=== PATIENT | female | born 1990 | race American Indian/Alaskan Native ===

== ENCOUNTER 2019-03-22 14:56 | Inpatient (IN) | payer SELFPAY ==
--- NOTE | 2019-03-22 15:41 | Event Note ---
ED Screening Note Date of service: 03/22/19 Time: 15:40 ED Screening Note: This is a 28 y.o. F. that presents to the ER with right flank pain for 2 days. Vomiting last night has resolved. LMP 02/21/2019 This initial assessment/diagnostic orders/clinical plan/treatment(s) is/are subject to change based on patients health status, clinical progression and re- assessment by fellow clinical providers in the ED. Further treatment and workup at subsequent clinical providers discretion. Patient/guardian urged not to elope from the ED as their condition may be serious if not clinically assessed and managed. Initial orders include: Labs and CT of abdomen and pelvis.
[2019-03-22 16:20] LABS: Basophils % (Auto) 0.3 % (0.0-1.8); Eosinophils # (Auto) 0.1 K/mm3 (0.0-0.4); Hematocrit 41.1 % (30.3-42.9); Lymphocytes # (Auto) 1.2 K/mm3 (1.2-5.4); Lymphocytes % (Auto) 10.9 % (13.4-35.0); Mean Corpuscular HGB Conc 34 % (30-34); Mean Corpuscular Volume 81 fl (79-97); Monocytes # (Auto) 0.6 K/mm3 (0.0-0.8); Monocytes % (Auto) 5.7 % (0.0-7.3); Platelet Count 271 K/mm3 (140-440); Red Blood Count 5.08 M/mm3 (3.65-5.03); Red Cell Distribution Width 14.3 % (13.2-15.2)
[2019-03-22 16:46] LABS: Alanine Aminotransferase 169 units/L (7-56); Albumin 4.4 g/dL (3.9-5); BUN/Creatinine Ratio 18; Blood Urea Nitrogen 9 mg/dL (7-17); Calcium 9.1 mg/dL (8.4-10.2); Hemolysis Index 8
[2019-03-22] MEDS ORDERED: MORPHINE 4 MG/1 ML INJ IV ONE (17:58)
[2019-03-22] MEDS ORDERED: SODIUM CHLORIDE 0.9% 1000 ML 1,000 ML IV ONE ×2 (17:58→21:33)
[2019-03-22] MEDS ORDERED: ONDANSETRON 4 MG/2 ML INJ IV ONE (17:58)
[2019-03-22 18:42] LABS: Bacteria,Urine 4+ /HPF (Negative); Bilirubin,Urine MOD (Negative); Blood,Urine SM (Negative); Color,Urine Amber (Yellow); Mucus,Urine 3+ /HPF
[2019-03-22 18:48] LABS: Ictotest,Urine Positive (Negative)
[2019-03-22] MEDS ORDERED: PIPERACIL/TAZOBACTA 4.5/NS 100 4.5 GM/100 ML VIAL IV ONE (20:12)
--- NOTE | 2019-03-22 20:15 | Emergency Department Report ---
ED Abdominal Pain HPI - General Chief Complaint: Abdominal Pain Stated Complaint: ABD PAIN Time Seen by Provider: 03/22/19 15:40 Source: patient Mode of arrival: Ambulatory Limitations: Language Barrier - History of Present Illness Initial Comments: This is a 28-year-old female nontoxic, well nourished in appearance, no acute signs of distress presents to the ED with c/o of nausea and vomiting and abdominal pain 2 days. Patient describes vomiting as food content and yellow gastric acid. Patient describes abdominal pain as cramping and aching with level of 10/10 to right upper side with radiation to right flank area. Patient denies chest pain, short of breath, fever, chills, headache, stiff neck, numbness or tingling. Patient denies any recent travels. Patient denies any allergies. Sirena translation has been present during interview and physical exam. MD Complaint: abdominal pain -: days(s) (2) Location: RUQ Radiation: R flank Migration to: no migration Severity: mild Severity scale (0 -10): 10 Quality: cramping, aching Consistency: constant Improves With: nothing Worsens With: nothing Associated Symptoms: nausea, vomiting. denies: diarrhea, fever, chills, constipation, dysuria, hematemesis, hematochezia, melena, hematuria, anorexia, syncope - Related Data Allergies Allergy/AdvReac Type Severity Reaction Status Date / Time No Known Allergies Allergy Unverified 03/22/19 14:59 ED Review of Systems ROS: Stated complaint: ABD PAIN Other details as noted in HPI Constitutional: denies: chills, fever Eyes: denies: eye pain, eye discharge, vision change ENT: denies: ear pain, throat pain Respiratory: denies: cough, shortness of breath, wheezing Cardiovascular: denies: chest pain, palpitations Endocrine: no symptoms reported Gastrointestinal: abdominal pain, nausea, vomiting. denies: diarrhea Genitourinary: denies: urgency, dysuria, discharge Musculoskeletal: denies: back pain, joint swelling, arthralgia Skin: denies: rash, lesions Neurological: denies: headache, weakness, paresthesias Psychiatric: denies: anxiety, depression Hematological/Lymphatic: denies: easy bleeding, easy bruising ED Past Medical Hx - Past Medical History Previous Medical History?: No - Surgical History Additional Surgical History: appendectomy - Social History Smoking Status: Never Smoker Substance Use Type: None ED Physical Exam - General Limitations: Language Barrier General appearance: alert, in no apparent distress - Head Head exam: Present: atraumatic, normocephalic - Eye Eye exam: Present: other (scleral slight jaundice noted) - Neck Neck exam: Present: normal inspection, full ROM. Absent: tenderness, meningismus, lymphadenopathy - Respiratory Respiratory exam: Present: normal lung sounds bilaterally. Absent: respiratory distress, wheezes, rales, rhonchi, stridor, chest wall tenderness, accessory muscle use, decreased breath sounds, prolonged expiratory - Cardiovascular Cardiovascular Exam: Present: regular rate, normal rhythm, normal heart sounds. Absent: systolic murmur, diastolic murmur, rubs, gallop - GI/Abdominal GI/Abdominal exam: Present: soft, tenderness (RUQ), normal bowel sounds. Absent: distended, guarding, rebound, rigid, diminished bowel sounds - Extremities Exam Extremities exam: Present: normal inspection, full ROM - Back Exam Back exam: Present: normal inspection, full ROM - Neurological Exam Neurological exam: Present: alert, oriented X3, normal gait - Psychiatric Psychiatric exam: Present: normal affect, normal mood - Skin Skin exam: Present: warm, dry, intact, normal color. Absent: rash ED Course Vital Signs 03/22/19 03/22/19 16:01 20:00 Temperature 97.6 F 97.8 F Pulse Rate 78 72 Respiratory 99 H 16 Rate Blood Pressure 128/82 115/77 O2 Sat by Pulse 99 98 Oximetry - Reevaluation(s) Reevaluation #1: 03/22/19 20:15 Patient is speaking in full sentences with no signs of distress noted. - Consultations Consultation #1: 03/22/19 21:18 Patient has been consulted with Jose Ritter about patient history, physical exam, and labs/CT results and examined and agrees to ED plan of care with admission. Consultation #2: 03/22/19 21:32 Patient has been consulted with Aleyda Blunt about patient history, physical exam, and labs/CT results and agrees for admission. ED Medical Decision Making - Lab Data Result diagrams: 03/22/19 16:07 03/22/19 16:07 - Medical Decision Making This is a 28-year-old female that presents with acute pancreatitis and cholelithiasis. Patient is stable and was examined by me. Patient was consulted with Dr. Hernandez and agrees for admission. I did consult Dr. Mendoza and agrees for admission with hospitalist for MRCP in the morning. Patient received Zosyn and ER and put on nothing by mouth after midnight. Patient is admitted by Dr. Chavez (hospitalist). At time of admission, the patient does not seem toxic or ill in appearance. No acute signs of distress noted. Patient agrees to admission treatment plan of care. No further questions noted by the patient. Sirena translation has been used during physical exam and interview and admission instructions. Critical care attestation.: If time is entered above; I have spent that time in minutes in the direct care of this critically ill patient, excluding procedure time. ED Disposition Clinical Impression: UTI (urinary tract infection) Qualifiers: Urinary tract infection type: site unspecified Hematuria presence: without hematuria Qualified Code(s): N39.0 - Urinary tract infection, site not specified Pancreatitis Qualifiers: Chronicity: acute Pancreatitis type: unspecified pancreatitis type Acute pancreatitis complication: unspecified Qualified Code(s): K85.90 - Acute pancreatitis without necrosis or infection, unspecified Cholelithiasis Qualifiers: Cholelithiasis location: gallbladder Cholecystitis presence: without cholecystitis Biliary obstruction: without biliary obstruction Qualified Code(s): K80.20 - Calculus of gallbladder without cholecystitis without obstruction Disposition: OP ADMIT IP TO THIS HOSP Is pt being admited?: Yes Condition: Stable
--- NOTE | 2019-03-22 21:01 | Cat Scan Report ---
CT ABDOMEN AND PELVIS WITH CONTRAST INDICATION: abd/flank pain CONTRAST: 100 cc Omnipaque 300 IV COMPARISON: None All CT scans at this location are performed using CT dose reduction for ALARA by means of automated e xposure control. NOTE: Resolution is decreased and artifact is introduced by the patient's size. FINDINGS: Mild bibasilar atelectatic changes are seen. In the lower medial right breast a large thick -walled cystic area is identified measuring 3.6 cm in transverse diameter which is only partially vis ualized. No gas is seen and no inflammation is obvious. No pneumoperitoneum is noted. Liver is enlarged with a length of 20.2 cm though no focal lesions are seen. Mild fatty infiltration is noted. Spleen is not significantly enlarged. There is a question of mild gallbladder wall thickening and perhaps low-density cholelithiasis though I do not see definite inflammation surrounding the gallbladder. No significant biliary dilatation is seen. The upper retrop eritoneum at the level of the pancreas shows stranding of fluid around the pancreatic head area and a djacent to the duodenum. This stranding continues inferiorly in the retroperitoneum a short distance but I do not see an organized collection to suggest pseudocyst. There could be a small amount of delores a and inflammation involving the head of the pancreas with though the body and tail are not obviously inflamed. No pancreatic lesions are seen. No pancreatic ductal dilatation is identified. No intraduc bahman calculus is seen. No masses are seen. No urinary tract obstructive changes are noted. No evidence of bowel obstruction is seen. No focal inflammatory changes are noted. Appendix is not visualized. Small amount of free fl uid is seen in the pelvis. A partially empty collapsed right ovarian cyst is seen measuring 2.4 cm wi th surrounding fluid in the right adnexa. An IUD is seen centrally in the uterine fundus. IMPRESSION: 1. Possible mild pancreatitis without obvious complication. Clinical correlation is suggested. 2. Evidence of a recently collapsed right ovarian cyst with free fluid in the pelvis which may relate to this finding. 3. Possible cholelithiasis and possible mild gallbladder wall thickening. Signer Name: Wagner Pedro MD Signed: 03/22/2019 8:57 PM Workstation Name: [id number]
[2019-03-22] MEDS ORDERED: ACETAMINOPHEN 325 MG TAB PO PRN (22:45)
[2019-03-22] MEDS ORDERED: ONDANSETRON 4 MG/2 ML INJ IV PRN (22:45)
[2019-03-22] MEDS ORDERED: MORPHINE 4 MG/1 ML INJ IV PRN (22:45)
[2019-03-22] MEDS ORDERED: SODIUM CHLORIDE 0.45% IV SCH (23:00)
[2019-03-22] MEDS ORDERED: POTASSIUM CHLORIDE IV SCH (23:00)
--- NOTE | 2019-03-22 23:04 | History and Physical Report ---
History of Present Illness Chief complaint: Right upper quadrant pain History of present illness: Indonesian-speaking, conducted history and physical using diplomatic interpreter/translator 28-year-old woman who presents to the hospital complaining of right-sided abdominal pain x2 days. States that pain appears to radiate to her back, Yolanda austin describes abdominal pain as cramping and aching with level of 10/10 to right upper side with radiation to right flank area. Is associated with anorexia, pain is about 7-8 out of 10. It has improved since getting pain medications. Denies sick contacts, denies eating standing food. She has never had pain like this in the past. Past History Past Medical History: No medical history Past Surgical History: appendectomy Social history: no significant social history Family history: no significant family history Medications and Allergies Allergies Allergy/AdvReac Type Severity Reaction Status Date / Time No Known Allergies Allergy Verified 03/22/19 22:56 Home Medications Medication Instructions Recorded Confirmed Last Taken Type HYDROcodone/APAP 5-325 [[place] 1 each PO Q6HR PRN #8 tablet 03/26/19 Unknown Rx 5/325] Potassium Chloride [K-Dur] 10 meq PO QDAY #7 tablet 03/26/19 Unknown Rx levoFLOXacin [Levaquin] 750 mg PO QDAY #5 tablet 03/26/19 Unknown Rx Active Meds: Active Medications Acetaminophen (Tylenol) 650 mg PO Q4H PRN PRN Reason: Pain MILD(1-3)/Fever >100.5/LYNN Sodium Chloride (Nacl 0.9% 1000 Ml) 1,000 mls @ 250 mls/hr IV ONCE ONE Stop: 03/23/19 01:32 Last Admin: 03/22/19 22:06 Dose: 250 mls/hr Documented by: Potassium Chloride 10 meq/ (Sodium Chloride) 1,005 mls @ 150 mls/hr IV DIRECT ZULEYMA Morphine Sulfate (Morphine) 4 mg IV Q4H PRN PRN Reason: Pain , Severe (7-10) Ondansetron HCl (Zofran) 4 mg IV Q4H PRN PRN Reason: Nausea And Vomiting Sodium Chloride (Sodium Chloride Flush Syringe 10 Ml) 10 ml IV BID ZULEYMA Sodium Chloride (Sodium Chloride Flush Syringe 10 Ml) 10 ml IV PRN PRN PRN Reason: LINE FLUSH Review of Systems All systems: negative Constitutional: anorexia Ears, nose, mouth and throat: no ear pain Breasts: no deferred Cardiovascular: no chest pain Respiratory: no cough Gastrointestinal: abdominal pain, nausea Genitourinary Female: no dyspareunia Rectal: no pain Musculoskeletal: no neck stiffness Integumentary: no rash Neurological: no head injury, no lack of coordination Psychiatric: no anxiety Endocrine: no cold intolerance Hematologic/Lymphatic: no easy bruising Allergic/Immunologic: no urticaria Exam - Constitutional Vitals: Temp Pulse Resp BP Pulse Ox 97.8 F 72 16 115/77 98 03/22/19 20:00 03/22/19 20:00 03/22/19 20:00 03/22/19 20:00 03/22/19 20:00 General appearance: Present: no acute distress, well-nourished - EENT Eyes: Present: PERRL ENT: hearing intact, clear oral mucosa - Neck Neck: Present: supple, normal ROM - Respiratory Respiratory effort: normal Respiratory: bilateral: CTA - Cardiovascular Heart Sounds: Present: S1 & S2. Absent: rub, click - Extremities Extremities: pulses symmetrical, No edema Peripheral Pulses: within normal limits - Abdominal General gastrointestinal: Present: soft, tender (Right upper quadrant, Wallace sign positive), non-distended, normal bowel sounds Female genitourinary: Present: normal - Integumentary Integumentary: Present: clear, warm, dry - Musculoskeletal Musculoskeletal: gait normal, strength equal bilaterally - Psychiatric Psychiatric: appropriate mood/affect, intact judgment & insight - Neurologic Neurologic: CNII-XII intact, moves all extremities Results - Labs CBC & Chem 7: 03/26/19 04:35 03/26/19 04:35 Labs: Laboratory Last Values WBC 10.6 K/mm3 (4.5-11.0) 03/22/19 16:07 RBC 5.08 M/mm3 (3.65-5.03) H 03/22/19 16:07 Hgb 14.0 gm/dl (10.1-14.3) 03/22/19 16:07 Hct 41.1 % (30.3-42.9) 03/22/19 16:07 MCV 81 fl (79-97) 03/22/19 16:07 MCH 28 pg (28-32) 03/22/19 16:07 MCHC 34 % (30-34) 03/22/19 16:07 RDW 14.3 % (13.2-15.2) 03/22/19 16:07 Plt Count 271 K/mm3 (140-440) 03/22/19 16:07 Lymph % (Auto) 10.9 % (13.4-35.0) L 03/22/19 16:07 [place] % (Auto) 5.7 % (0.0-7.3) 03/22/19 16:07 Eos % (Auto) 1.0 % (0.0-4.3) 03/22/19 16:07 Baso % (Auto) 0.3 % (0.0-1.8) 03/22/19 16:07 Lymph # 1.2 K/mm3 (1.2-5.4) 03/22/19 16:07 [place] # 0.6 K/mm3 (0.0-0.8) 03/22/19 16:07 Eos # 0.1 K/mm3 (0.0-0.4) 03/22/19 16:07 Baso # 0.0 K/mm3 (0.0-0.1) 03/22/19 16:07 Seg Neutrophils % 82.1 % (40.0-70.0) H 03/22/19 16:07 Seg Neutrophils # 8.7 K/mm3 (1.8-7.7) H 03/22/19 16:07 Sodium 138 mmol/L (137-145) 03/22/19 16:07 Potassium 3.5 mmol/L (3.6-5.0) L 03/22/19 16:07 Chloride 100.1 mmol/L (98-107) 03/22/19 16:07 Carbon Dioxide 26 mmol/L (22-30) 03/22/19 16:07 15 mmol/L 03/22/19 16:07 BUN 9 mg/dL (7-17) 03/22/19 16:07 0.5 mg/dL (0.7-1.2) L 03/22/19 16:07 Estimated GFR > 60 ml/min 03/22/19 16:07 18 % 03/22/19 16:07 Glucose 87 mg/dL (65-100) 03/22/19 16:07 Calcium 9.1 mg/dL (8.4-10.2) 03/22/19 16:07 4.90 mg/dL (0.1-1.2) H 03/22/19 16:07 AST 82 units/L (5-40) H 03/22/19 16:07 ALT 169 units/L (7-56) H 03/22/19 16:07 174 units/L (35-129) H 03/22/19 16:07 8.1 g/dL (6.3-8.2) 03/22/19 16:07 4.4 g/dL (3.9-5) 03/22/19 16:07 1.2 % 03/22/19 16:07 495 units/L (13-60) H 03/22/19 16:07 HCG, Qual Negative (Negative) 03/22/19 16:07 [place]arian[place] (Yellow) 03/22/19 16:01 Slightly-cloudy (Clear) 03/22/19 16:01 5.0 (5.0-7.0) 03/22/19 16:01 Ur Specific [employer] 1.027 (1.003-1.030) 03/22/19 16:01 30 mg/dl mg/dL (Negative) 03/22/19 16:01 Neg mg/dL (Negative) 03/22/19 16:01 Neg mg/dL (Negative) 03/22/19 16:01 Sm (Negative) 03/22/19 16:01 Pos (Negative) 03/22/19 16:01 Mod (Negative) 03/22/19 16:01 Positive (Negative) 03/22/19 16:01 4.0 mg/dL (<2.0) 03/22/19 16:01 Ur Leukocyte Esterase Neg (Negative) 03/22/19 16:01 3.0 /HPF (0.0-6.0) 03/22/19 16:01 2.0 /HPF (0.0-6.0) 03/22/19 16:01 U Epithel Cells (Auto) 13.0 /HPF (0-13.0) 03/22/19 16:01 4+ /HPF (Negative) 03/22/19 16:01 3+ /HPF 03/22/19 16:01 Assessment and Plan Assessment and plan: 28-year-old woman with right upper quadrant pain Labs show potassium of 3.5, lipase of 495 CT abdomen and pelvis; possible mild pancreatitis with obvious without obvious complication. Evidence of a recently possible cholelithiasis and possible mild gallbladder wall thickening. Acute cholecystitis with mild gallstone pancreatitis ER discussed case with general surgeon Dr. Hendricks, he recommended keeping n.p.o. on obtaining MRCP. Preventative health counseling performed for 17 minutes DVT prophylaxis with early ambulation
[2019-03-23 07:19] LABS: Basophils % (Auto) 0.5 % (0.0-1.8); Eosinophils # (Auto) 0.2 K/mm3 (0.0-0.4); Hemoglobin 13.2 gm/dl (10.1-14.3); Lymphocytes # (Auto) 1.2 K/mm3 (1.2-5.4); Mean Corpuscular HGB Conc 34 % (30-34); Mean Corpuscular Volume 82 fl (79-97); Monocytes # (Auto) 0.7 K/mm3 (0.0-0.8); Monocytes % (Auto) 8.2 % (0.0-7.3); Platelet Count 237 K/mm3 (140-440); Red Blood Count 4.76 M/mm3 (3.65-5.03); Red Cell Distribution Width 14.1 % (13.2-15.2)
[2019-03-23 07:42] LABS: BUN/Creatinine Ratio 12; Blood Urea Nitrogen 6 mg/dL (7-17); Calcium 8.4 mg/dL (8.4-10.2); Hemolysis Index 2
--- NOTE | 2019-03-23 08:02 | Progress Note ---
Assessment and Plan Full consult dictated: 28 y/o healthy female. r/o biliary pancreatitis Polish-speaking, conducted history and physical using disintegrator operator 28-year-old woman who presents to the hospital complaining of right-sided abdominal pain x2 days. States that pain appears to radiate to her back. Is associated with anorexia, pain is about 7-8 out of 10. It has improved since getting pain medications. Denies sick contacts, denies eating standing food. She has never had pain like this in the past. Past History Past Medical History: No medical history Past Surgical History: appendectomy Social history: no significant social history Family history: no significant family history Pt feeling somewhat better now. localized RUQ tenderness labs as below. r/o biliary pancreatitis/ cholecystitis keep NPO IV Levaquin awaiting MRCP GI eval if CBD stones noted repeat labs in am Laboratory Tests 03/22/19 03/23/19 16:07 06:34 WBC 8.3 Hgb 13.2 Hct 39.0 Total Bilirubin 4.90 H AST 82 H ALT 169 H Alkaline Phosphatase 174 H Lipase 495 H Objective Vital Signs - 12hr 03/22/19 03/23/19 03/23/19 22:59 01:07 02:41 Temperature 98.1 F 97.9 F Pulse Rate 72 68 Respiratory 16 18 20 Rate Blood Pressure 106/63 Blood Pressure 117/75 [Right] O2 Sat by Pulse 98 99 Oximetry 03/23/19 03/23/19 04:30 04:58 Temperature 97.9 F Pulse Rate 75 Respiratory 16 20 Rate Blood Pressure 138/94 Blood Pressure [Right] O2 Sat by Pulse 100 Oximetry - Labs 03/23/19 06:34 03/23/19 06:34 Diabetes panel 03/22/19 03/23/19 Range/Units 16:07 06:34 Sodium 138 137 (137-145) mmol/L Potassium 3.5 L 3.9 (3.6-5.0) mmol/L Chloride 100.1 101.6 (98-107) mmol/L Carbon Dioxide 26 23 (22-30) mmol/L BUN 9 6 L (7-17) mg/dL Creatinine 0.5 L 0.5 L (0.7-1.2) mg/dL Glucose 87 91 (65-100) mg/dL Calcium 9.1 8.4 (8.4-10.2) mg/dL AST 82 H (5-40) units/L ALT 169 H (7-56) units/L Alkaline Phosphatase 174 H (35-129) units/L Total Protein 8.1 (6.3-8.2) g/dL Albumin 4.4 (3.9-5) g/dL Calcium panel 03/22/19 03/23/19 Range/Units 16:07 06:34 Calcium 9.1 8.4 (8.4-10.2) mg/dL Albumin 4.4 (3.9-5) g/dL Pituitary panel 03/22/19 03/23/19 Range/Units 16:07 06:34 Sodium 138 137 (137-145) mmol/L Potassium 3.5 L 3.9 (3.6-5.0) mmol/L Chloride 100.1 101.6 (98-107) mmol/L Carbon Dioxide 26 23 (22-30) mmol/L BUN 9 6 L (7-17) mg/dL Creatinine 0.5 L 0.5 L (0.7-1.2) mg/dL Glucose 87 91 (65-100) mg/dL Calcium 9.1 8.4 (8.4-10.2) mg/dL Adrenal panel 03/22/19 03/23/19 Range/Units 16:07 06:34 Sodium 138 137 (137-145) mmol/L Potassium 3.5 L 3.9 (3.6-5.0) mmol/L Chloride 100.1 101.6 (98-107) mmol/L Carbon Dioxide 26 23 (22-30) mmol/L BUN 9 6 L (7-17) mg/dL Creatinine 0.5 L 0.5 L (0.7-1.2) mg/dL Glucose 87 91 (65-100) mg/dL Calcium 9.1 8.4 (8.4-10.2) mg/dL Total Bilirubin 4.90 H (0.1-1.2) mg/dL AST 82 H (5-40) units/L ALT 169 H (7-56) units/L Alkaline Phosphatase 174 H (35-129) units/L Total Protein 8.1 (6.3-8.2) g/dL Albumin 4.4 (3.9-5) g/dL
--- NOTE | 2019-03-23 08:11 | Progress Note ---
Assessment and Plan Assessment and plan: Patient is a 28-year-old Polish speaking woman without chronic medical problems who presents with right upper quadrant pains. Labs show potassium of 3.5, lipase of 495 * CT abdomen and pelvis; possible mild pancreatitis with obvious without obvious complication. Evidence of a recently possible cholelithiasis and possible mild gallbladder wall thickening. Acute cholecystitis with mild gallstone pancreatitis: ER discussed case with general surgeon Dr. Hendricks, he recommended keeping n.p.o. on obtaining MRCP. Hypokalemia: monitor bmp closely History Interval history: Patient was seen and examined. Follow-up on current diagnosis GS pancreatitis. No overnight events reported to me. Patient denies any chest pain, shortness breath, nausea/vomiting or severe headaches. Imaging, nursing note, chart, labs and old chart reviewed. Discussed with patient. Hospitalist Physical - Physical exam Narrative exam: Gen: WDWN, NAD, Awake, Alert, Orientated HEENT: NCAT, EOMI, PERRL, OP Clear Neck: supple, no adenopathy, no thyromegaly, no JVD CVS/Heart: RRR, normal S1S2, pulses present bilaterally Chest/Lungs: CTA B, Symmetrical chest expansion, good air entry bilaterally GI/Abdomen: soft, RUQ tenderness, good bowel sounds, no guarding or rebound /Bladder: no suprapubic tenderness, no CVA or paraspinal tenderness Extermity/Skin: no c/c/e, no obvious rash MSK: FROM x 4 Neuro: CN 2-12 grossly intact, no new focal deficits Psych: calm - Constitutional Vitals: Temp Pulse Resp BP Pulse Ox 97.9 F 75 20 138/94 100 03/23/19 04:30 03/23/19 04:30 03/23/19 04:58 03/23/19 04:30 03/23/19 04:30 General appearance: Present: no acute distress, well-nourished Results - Labs CBC & Chem 7: 03/23/19 06:34 03/23/19 06:34 Labs: Laboratory Last Values WBC 8.3 K/mm3 (4.5-11.0) 03/23/19 06:34 RBC 4.76 M/mm3 (3.65-5.03) 03/23/19 06:34 Hgb 13.2 gm/dl (10.1-14.3) 03/23/19 06:34 Hct 39.0 % (30.3-42.9) 03/23/19 06:34 MCV 82 fl (79-97) 03/23/19 06:34 MCH 28 pg (28-32) 03/23/19 06:34 MCHC 34 % (30-34) 03/23/19 06:34 RDW 14.1 % (13.2-15.2) 03/23/19 06:34 Plt Count 237 K/mm3 (140-440) 03/23/19 06:34 Lymph % (Auto) 15.0 % (13.4-35.0) 03/23/19 06:34 [place] % (Auto) 8.2 % (0.0-7.3) H 03/23/19 06:34 Eos % (Auto) 2.0 % (0.0-4.3) 03/23/19 06:34 Baso % (Auto) 0.5 % (0.0-1.8) 03/23/19 06:34 Lymph # 1.2 K/mm3 (1.2-5.4) 03/23/19 06:34 [place] # 0.7 K/mm3 (0.0-0.8) 03/23/19 06:34 Eos # 0.2 K/mm3 (0.0-0.4) 03/23/19 06:34 Baso # 0.0 K/mm3 (0.0-0.1) 03/23/19 06:34 Seg Neutrophils % 74.3 % (40.0-70.0) H 03/23/19 06:34 Seg Neutrophils # 6.1 K/mm3 (1.8-7.7) 03/23/19 06:34 Sodium 137 mmol/L (137-145) 03/23/19 06:34 Potassium 3.9 mmol/L (3.6-5.0) 03/23/19 06:34 Chloride 101.6 mmol/L (98-107) 03/23/19 06:34 Carbon Dioxide 23 mmol/L (22-30) 03/23/19 06:34 16 mmol/L 03/23/19 06:34 BUN 6 mg/dL (7-17) L 03/23/19 06:34 0.5 mg/dL (0.7-1.2) L 03/23/19 06:34 Estimated GFR > 60 ml/min 03/23/19 06:34 12 % 03/23/19 06:34 Glucose 91 mg/dL (65-100) 03/23/19 06:34 Calcium 8.4 mg/dL (8.4-10.2) 03/23/19 06:34 4.90 mg/dL (0.1-1.2) H 03/22/19 16:07 AST 82 units/L (5-40) H 03/22/19 16:07 ALT 169 units/L (7-56) H 03/22/19 16:07 174 units/L (35-129) H 03/22/19 16:07 8.1 g/dL (6.3-8.2) 03/22/19 16:07 4.4 g/dL (3.9-5) 03/22/19 16:07 1.2 % 03/22/19 16:07 495 units/L (13-60) H 03/22/19 16:07 HCG, Qual Negative (Negative) 03/22/19 16:07 Dariana (Yellow) 03/22/19 16:01 Slightly-cloudy (Clear) 03/22/19 16:01 5.0 (5.0-7.0) 03/22/19 16:01 Ur Specific [place] 1.027 (1.003-1.030) 03/22/19 16:01 30 mg/dl mg/dL (Negative) 03/22/19 16:01 Neg mg/dL (Negative) 03/22/19 16:01 Neg mg/dL (Negative) 03/22/19 16:01 Sm (Negative) 03/22/19 16:01 Pos (Negative) 03/22/19 16:01 Mod (Negative) 03/22/19 16:01 Positive (Negative) 03/22/19 16:01 4.0 mg/dL (<2.0) 03/22/19 16:01 Ur Leukocyte Esterase Neg (Negative) 03/22/19 16:01 3.0 /HPF (0.0-6.0) 03/22/19 16:01 2.0 /HPF (0.0-6.0) 03/22/19 16:01 U Epithel Cells (Auto) 13.0 /HPF (0-13.0) 03/22/19 16:01 4+ /HPF (Negative) 03/22/19 16:01 3+ /HPF 03/22/19 16:01 Active Medications - Current Medications Current Medications: Generic Name Dose Route Start Last Admin Trade Name Freq PRN Reason Stop Dose Admin Acetaminophen 650 mg 03/22/19 22:45 Tylenol PO Q4H PRN Pain MILD(1-3)/Fever >100.5/LYNN Potassium Chloride 10 meq/ 1,005 mls @ 150 mls/hr 03/22/19 23:00 03/23/19 01:12 Sodium Chloride IV 150 mls/hr DIRECT ZULEYMA Administration Levofloxacin/Dextrose 500 mg in 100 mls @ 100 mls/hr 03/23/19 10:00 Levaquin 500mg/100ml IV Q24HR [facility] Protocol Morphine Sulfate 4 mg 03/22/19 22:45 03/23/19 04:58 Morphine IV 4 mg Q4H PRN Administration Pain , Severe (7-10) Ondansetron HCl 4 mg 03/22/19 22:45 Zofran IV Q4H PRN Nausea And Vomiting Sodium Chloride 10 ml 03/23/19 10:00 Sodium Chloride Flush Syringe 10 Ml IV BID ZULEYMA Sodium Chloride 10 ml 03/22/19 22:45 Sodium Chloride Flush Syringe 10 Ml IV PRN PRN LINE FLUSH
--- NOTE | 2019-03-23 09:25 | Consultation ---
REASON FOR CONSULTATION: Rule out biliary pancreatitis. HISTORY OF PRESENT ILLNESS: The patient is a 28-year-old healthy female who presented to Emergency Room with recent onset of right upper quadrant abdominal pain. The patient states she has had this pain in the past. Currently, feeling better. PAST MEDICAL HISTORY: Pertinent for occasional migraines. PAST SURGICAL HISTORY: Status post open appendectomy. ALLERGIES: No known allergies. MEDICATIONS: No medications. FAMILY HISTORY: Diabetes, hypertension, and breast cancer. SOCIAL HISTORY: Denies any smoking or drinking. REVIEW OF SYSTEMS: Noncontributory. PHYSICAL EXAMINATION: GENERAL: At this time reveals the patient to be awake, alert, cooperative, in no acute distress. VITAL SIGNS: Show her to be afebrile with a temperature of 97.9, blood pressure is 138/94, pulse of 75, respirations 16. HEENT: Pupils are equal and reactive to light and accommodation. Sclera is slightly icteric. ABDOMEN: Examination of the abdomen reveals to be moderately obese and soft. There is, however, localized right upper quadrant tenderness with very mild guarding. Bowel sounds are present. LABORATORY DATA: Lab work at present includes a CBC, which shows a white count of 8.3, H and H is 13 and 39. Electrolytes are essentially within normal limits. LFTs are elevated including a total bilirubin of 4.9, AST is 82, ALT 169, alkaline phosphatase is 174. Lipase is 495. A CT scan of the abdomen was performed, which reveals a question of mild gallbladder wall thickening and possibly cholelithiasis. No definitive surrounding inflammation is noted. No mention of the pancreas is noted in the report, but again an elevated lipase is noted as well as an elevated total bilirubin. IMPRESSION: At this time is that of a healthy 28-year-old female, rule out biliary pancreatitis/possible cholecystitis. RECOMMENDATIONS: At this time is to keep the patient n.p.o. on IV Levaquin. Awaiting MRCP to see if there are any common bile duct stones noted or any other evidence of choledocholithiasis. If so, then would proceed with GI evaluation for possible ERCP. We will repeat labs in the morning and follow closely with you. Thank you very much for consultation. JOB# [id number] FP/NTS
--- NOTE | 2019-03-23 09:36 | Ultrasound Report ---
ULTRASOUND ABDOMEN, LIMITED (RIGHT UPPER QUADRANT) INDICATION: gallstones. COMPARISON: CT scan dated 03/22/2019 FINDINGS: Pancreas: Not well visualized due to overlying bowel gas. Liver: Enlarged measuring 18 cm. No focal hepatic lesions are seen. Gallbladder: There are multiple gallstones in the lumen of the gallbladder. Bile ducts: Normal. Common Bile Duct measures 2 mm. Free fluid: None. Additional Findings: None. IMPRESSION: 1. There is cholelithiasis. Gallbladder wall is normal in thickness on this ultrasound exam. There is no biliary dilatation. The pancreas is not well seen. Signer Name: Roger Barrera MD Signed: 03/23/2019 9:31 AM Workstation Name: [id number]
[2019-03-23] MEDS: POTASSIUM CHLORIDE 10 MEQ in SODIUM CHLORIDE 0.45% 1000 ML 1,000 ML IV SCH (20:15)
[2019-03-24] MEDS: POTASSIUM CHLORIDE 10 MEQ in SODIUM CHLORIDE 0.45% 1000 ML 1,000 ML IV SCH ×2 (02:07→18:43)
[2019-03-24 05:51] LABS: Basophils % (Auto) 0.4 % (0.0-1.8); Eosinophils # (Auto) 0.2 K/mm3 (0.0-0.4); Hematocrit 40.1 % (30.3-42.9); Hemoglobin 13.4 gm/dl (10.1-14.3); Lymphocytes # (Auto) 1.8 K/mm3 (1.2-5.4); Lymphocytes % (Auto) 29.2 % (13.4-35.0); Mean Corpuscular HGB Conc 34 % (30-34); Mean Corpuscular Volume 82 fl (79-97); Monocytes # (Auto) 0.5 K/mm3 (0.0-0.8); Monocytes % (Auto) 8.2 % (0.0-7.3); Platelet Count 244 K/mm3 (140-440); Red Blood Count 4.93 M/mm3 (3.65-5.03); Red Cell Distribution Width 14.1 % (13.2-15.2)
[2019-03-24 06:09] LABS: Alanine Aminotransferase 94 units/L (7-56); Albumin 3.9 g/dL (3.9-5); BUN/Creatinine Ratio 10; Blood Urea Nitrogen 5 mg/dL (7-17); Calcium 8.5 mg/dL (8.4-10.2); Hemolysis Index 3
--- NOTE | 2019-03-24 12:37 | Progress Note ---
Assessment and Plan HD # 2 Pt feeling much better today. no pain. Abd soft, non tender at present MRCP not done yesterday. just completed now but no results available. Tried to locate the teleradiologist but not available lowering LFT's and amylase noted clinically improving. need to await MRCP results prior to attempting cl liq diet. if + CBD stones, would need to keep NPO and consult GI for ERCP Selected Entries 03/24/19 06:58 Temperature 97.0 F L Pulse Rate 66 Respiratory 16 Rate Blood Pressure 113/78 Laboratory Tests 03/22/19 03/24/19 03/24/19 16:07 05:14 05:14 WBC 6.2 Hgb 13.4 Hct 40.1 Total Bilirubin 4.90 H 2.40 H AST 82 H 37 ALT 169 H 94 H Alkaline Phosphatase 174 H 153 H Lipase 495 H 68 H Objective Vital Signs - 12hr 03/24/19 03/24/19 04:50 06:58 Temperature 97.7 F 97.0 F L Pulse Rate 96 H 66 Respiratory 18 16 Rate Blood Pressure 125/76 113/78 O2 Sat by Pulse 97 97 Oximetry - Labs 03/24/19 05:14 03/24/19 05:14 Diabetes panel 03/24/19 Range/Units 05:14 Sodium 137 (137-145) mmol/L Potassium 3.7 (3.6-5.0) mmol/L Chloride 103.1 (98-107) mmol/L Carbon Dioxide 23 (22-30) mmol/L BUN 5 L (7-17) mg/dL Creatinine 0.5 L (0.7-1.2) mg/dL Glucose 78 (65-100) mg/dL Calcium 8.5 (8.4-10.2) mg/dL AST 37 (5-40) units/L ALT 94 H (7-56) units/L Alkaline Phosphatase 153 H (35-129) units/L Total Protein 7.3 (6.3-8.2) g/dL Albumin 3.9 (3.9-5) g/dL Calcium panel 03/24/19 Range/Units 05:14 Calcium 8.5 (8.4-10.2) mg/dL Albumin 3.9 (3.9-5) g/dL Pituitary panel 03/24/19 Range/Units 05:14 Sodium 137 (137-145) mmol/L Potassium 3.7 (3.6-5.0) mmol/L Chloride 103.1 (98-107) mmol/L Carbon Dioxide 23 (22-30) mmol/L BUN 5 L (7-17) mg/dL Creatinine 0.5 L (0.7-1.2) mg/dL Glucose 78 (65-100) mg/dL Calcium 8.5 (8.4-10.2) mg/dL Adrenal panel 03/24/19 Range/Units 05:14 Sodium 137 (137-145) mmol/L Potassium 3.7 (3.6-5.0) mmol/L Chloride 103.1 (98-107) mmol/L Carbon Dioxide 23 (22-30) mmol/L BUN 5 L (7-17) mg/dL Creatinine 0.5 L (0.7-1.2) mg/dL Glucose 78 (65-100) mg/dL Calcium 8.5 (8.4-10.2) mg/dL Total Bilirubin 2.40 H (0.1-1.2) mg/dL AST 37 (5-40) units/L ALT 94 H (7-56) units/L Alkaline Phosphatase 153 H (35-129) units/L Total Protein 7.3 (6.3-8.2) g/dL Albumin 3.9 (3.9-5) g/dL
--- NOTE | 2019-03-24 12:56 | Magnetic Resonance Report ---
MR abdomen MRCP INDICATION: RUQ pain, pancreatitis, gall stones. TECHNIQUE: Multiplanar, multisequence MR images were obtained through the abdomen without contrast following an MRCP protocol. COMPARISON: CT abdomen and pelvis with contrast from 03/22/2019. FINDINGS: Lower chest: There is mild bibasilar atelectasis. No additional significant abnormality. Liver: No significant abnormality. Biliary: Multiple gallstones are again seen with wall thickening and localized surrounding edema. No biliary ductal dilatation is seen. No choledocholithiasis is identified. Pancreas: Mild edema is again seen near the pancreatic head without an additional significant abnorma lity. Spleen: No significant abnormality. Adrenals: No significant abnormality. Kidneys: No significant abnormality. GI tract: There is similar thickening of the proximal duodenum with a small amount of surrounding flu id and mild edema. Lymph nodes: No lymphadenopathy. Vasculature: No significant abnormality. Bones: No acute abnormality. Additional findings: None. IMPRESSION: 1. Suspected acute cholecystitis. Please correlate with the clinical findings. 2. No evidence of biliary obstruction or choledocholithiasis. 3. Persistent mild thickening of the proximal duodenum with surrounding edema and a small amount of f luid is likely secondary to the inflammation of the gallbladder. Duodenitis unrelated to the suspecte d cholecystitis is a less likely consideration. Inflammation from this process can be seen along the pancreatic head without additional evidence of pancreatitis. Please correlate with the clinical findi ngs. Signer Name: Al Redman MD Signed: 03/24/2019 12:52 PM Workstation Name: [id number]
--- NOTE | 2019-03-24 13:46 | Progress Note ---
Assessment and Plan Assessment and plan: Patient is a 28-year-old Slovak speaking woman without chronic medical problems who presents with right upper quadrant pains. Labs show potassium of 3.5, lipase of 495 * CT abdomen and pelvis; possible mild pancreatitis with obvious without obvious complication. Evidence of a recently possible cholelithiasis and possible mild gallbladder wall thickening. Acute cholecystitis with mild gallstone pancreatitis: ER discussed case with general surgeon Dr. Hendricks, he recommended keeping n.p.o. on obtaining MRCP. Hypokalemia: monitor bmp closely mrcp reviewed, continue treatment for ACute cholecystitis. History Interval history: Patient was seen and examined. Follow-up on current diagnosis GS pancreatitis. No overnight events reported to me. Patient denies any chest pain, shortness breath, nausea/vomiting or severe headaches. Imaging, nursing note, chart, labs and old chart reviewed. Discussed with patient. Hospitalist Physical - Physical exam Narrative exam: Gen: WDWN, NAD, Awake, Alert, Orientated HEENT: NCAT, EOMI, PERRL, OP Clear Neck: supple, no adenopathy, no thyromegaly, no JVD CVS/Heart: RRR, normal S1S2, pulses present bilaterally Chest/Lungs: CTA B, Symmetrical chest expansion, good air entry bilaterally GI/Abdomen: soft, RUQ tenderness, good bowel sounds, no guarding or rebound /Bladder: no suprapubic tenderness, no CVA or paraspinal tenderness Extermity/Skin: no c/c/e, no obvious rash MSK: FROM x 4 Neuro: CN 2-12 grossly intact, no new focal deficits Psych: calm - Constitutional Vitals: Temp Pulse Resp BP Pulse Ox 97.0 F L 66 16 113/78 97 03/24/19 06:58 03/24/19 06:58 03/24/19 06:58 03/24/19 06:58 03/24/19 06:58 General appearance: Present: no acute distress, well-nourished Results - Labs CBC & Chem 7: 03/24/19 05:14 03/24/19 05:14 Labs: Laboratory Last Values WBC 6.2 K/mm3 (4.5-11.0) 03/24/19 05:14 RBC 4.93 M/mm3 (3.65-5.03) 03/24/19 05:14 Hgb 13.4 gm/dl (10.1-14.3) 03/24/19 05:14 Hct 40.1 % (30.3-42.9) 03/24/19 05:14 MCV 82 fl (79-97) 03/24/19 05:14 MCH 27 pg (28-32) L 03/24/19 05:14 MCHC 34 % (30-34) 03/24/19 05:14 RDW 14.1 % (13.2-15.2) 03/24/19 05:14 Plt Count 244 K/mm3 (140-440) 03/24/19 05:14 Lymph % (Auto) 29.2 % (13.4-35.0) 03/24/19 05:14 Rankin % (Auto) 8.2 % (0.0-7.3) H 03/24/19 05:14 Eos % (Auto) 3.0 % (0.0-4.3) 03/24/19 05:14 Baso % (Auto) 0.4 % (0.0-1.8) 03/24/19 05:14 Lymph # 1.8 K/mm3 (1.2-5.4) 03/24/19 05:14 Rankin # 0.5 K/mm3 (0.0-0.8) 03/24/19 05:14 Eos # 0.2 K/mm3 (0.0-0.4) 03/24/19 05:14 Baso # 0.0 K/mm3 (0.0-0.1) 03/24/19 05:14 Seg Neutrophils % 59.2 % (40.0-70.0) 03/24/19 05:14 Seg Neutrophils # 3.6 K/mm3 (1.8-7.7) 03/24/19 05:14 Sodium 137 mmol/L (137-145) 03/24/19 05:14 Potassium 3.7 mmol/L (3.6-5.0) 03/24/19 05:14 Chloride 103.1 mmol/L (98-107) 03/24/19 05:14 Carbon Dioxide 23 mmol/L (22-30) 03/24/19 05:14 15 mmol/L 03/24/19 05:14 BUN 5 mg/dL (7-17) L 03/24/19 05:14 0.5 mg/dL (0.7-1.2) L 03/24/19 05:14 Estimated GFR > 60 ml/min 03/24/19 05:14 10 % 03/24/19 05:14 Glucose 78 mg/dL (65-100) 03/24/19 05:14 Calcium 8.5 mg/dL (8.4-10.2) 03/24/19 05:14 2.40 mg/dL (0.1-1.2) H 03/24/19 05:14 AST 37 units/L (5-40) 03/24/19 05:14 ALT 94 units/L (7-56) H 03/24/19 05:14 153 units/L (35-129) H 03/24/19 05:14 7.3 g/dL (6.3-8.2) 03/24/19 05:14 3.9 g/dL (3.9-5) 03/24/19 05:14 1.1 % 03/24/19 05:14 68 units/L (13-60) H 03/24/19 05:14 HCG, Qual Negative (Negative) 03/22/19 16:07 Dariana (Yellow) 03/22/19 16:01 Slightly-cloudy (Clear) 03/22/19 16:01 5.0 (5.0-7.0) 03/22/19 16:01 Ur Specific [place] 1.027 (1.003-1.030) 03/22/19 16:01 30 mg/dl mg/dL (Negative) 03/22/19 16:01 Neg mg/dL (Negative) 03/22/19 16:01 Neg mg/dL (Negative) 03/22/19 16:01 Sm (Negative) 03/22/19 16:01 Pos (Negative) 03/22/19 16:01 Mod (Negative) 03/22/19 16:01 Positive (Negative) 03/22/19 16:01 4.0 mg/dL (<2.0) 03/22/19 16:01 Ur Leukocyte Esterase Neg (Negative) 03/22/19 16:01 3.0 /HPF (0.0-6.0) 03/22/19 16:01 2.0 /HPF (0.0-6.0) 03/22/19 16:01 U Epithel Cells (Auto) 13.0 /HPF (0-13.0) 03/22/19 16:01 4+ /HPF (Negative) 03/22/19 16:01 3+ /HPF 03/22/19 16:01 Active Medications - Current Medications Current Medications: Generic Name Dose Route Start Last Admin Trade Name Anthonyq PRN Reason Stop Dose Admin Acetaminophen 650 mg 03/22/19 22:45 Tylenol PO Q4H PRN Pain MILD(1-3)/Fever >100.5/LYNN Levofloxacin/Dextrose 500 mg in 100 mls @ 100 mls/hr 03/23/19 10:00 03/24/19 09:05 Levaquin 500mg/100ml IV 100 mls/hr Q24HR ZULEYMA Administration Protocol Potassium Chloride 10 meq/ 1,005 mls @ 150 mls/hr 03/23/19 17:00 03/24/19 02:07 Sodium Chloride IV 150 mls/hr DIRECT ZULEYMA Administration Morphine Sulfate 4 mg 03/22/19 22:45 03/23/19 04:58 Morphine IV 4 mg Q4H PRN Administration Pain , Severe (7-10) Ondansetron HCl 4 mg 03/22/19 22:45 Zofran IV Q4H PRN Nausea And Vomiting Sodium Chloride 10 ml 03/23/19 10:00 03/24/19 09:05 Sodium Chloride Flush Syringe 10 Ml IV Not Given BID ZULEYMA Sodium Chloride 10 ml 03/22/19 22:45 Sodium Chloride Flush Syringe 10 Ml IV PRN PRN LINE FLUSH
--- NOTE | 2019-03-25 10:13 | Progress Note ---
Assessment and Plan Assessment and plan: Patient is a 28-year-old English speaking woman without chronic medical problems who presents with right upper quadrant pains. Labs show potassium of 3.5, lipase of 495 * CT abdomen and pelvis; possible mild pancreatitis with obvious without obvious complication. Evidence of a recently possible cholelithiasis and possible mild gallbladder wall thickening. Acute cholecystitis with mild gallstone pancreatitis: ER discussed case with general surgeon Dr. Hendricks, he recommended keeping n.p.o. on obtaining MRCP. Hypokalemia: monitor bmp closely mrcp reviewed, continue treatment for ACute cholecystitis. Hopefully OR/surgery tomorrow. History Interval history: Patient was seen and examined. Follow-up on current diagnosis GS pancreatitis. No overnight events reported to me. Patient denies any chest pain, shortness breath, nausea/vomiting or severe headaches. Imaging, nursing note, chart, labs and old chart reviewed. Discussed with patient. Hospitalist Physical - Physical exam Narrative exam: Gen: WDWN, NAD, Awake, Alert, Orientated HEENT: NCAT, EOMI, PERRL, OP Clear Neck: supple, no adenopathy, no thyromegaly, no JVD CVS/Heart: RRR, normal S1S2, pulses present bilaterally Chest/Lungs: CTA B, Symmetrical chest expansion, good air entry bilaterally GI/Abdomen: soft, RUQ tenderness, good bowel sounds, no guarding or rebound /Bladder: no suprapubic tenderness, no CVA or paraspinal tenderness Extermity/Skin: no c/c/e, no obvious rash MSK: FROM x 4 Neuro: CN 2-12 grossly intact, no new focal deficits Psych: calm - Constitutional Vitals: Temp Pulse Resp BP Pulse Ox 97.5 F L 94 H 18 106/66 98 03/25/19 07:46 03/25/19 07:46 03/25/19 07:46 03/25/19 07:48 03/25/19 07:46 General appearance: Present: no acute distress, well-nourished Results - Labs CBC & Chem 7: 03/24/19 05:14 03/24/19 05:14 Labs: Laboratory Last Values WBC 6.2 K/mm3 (4.5-11.0) 03/24/19 05:14 RBC 4.93 M/mm3 (3.65-5.03) 03/24/19 05:14 Hgb 13.4 gm/dl (10.1-14.3) 03/24/19 05:14 Hct 40.1 % (30.3-42.9) 03/24/19 05:14 MCV 82 fl (79-97) 03/24/19 05:14 MCH 27 pg (28-32) L 03/24/19 05:14 MCHC 34 % (30-34) 03/24/19 05:14 RDW 14.1 % (13.2-15.2) 03/24/19 05:14 Plt Count 244 K/mm3 (140-440) 03/24/19 05:14 Lymph % (Auto) 29.2 % (13.4-35.0) 03/24/19 05:14 [place]ven % (Auto) 8.2 % (0.0-7.3) H 03/24/19 05:14 Eos % (Auto) 3.0 % (0.0-4.3) 03/24/19 05:14 Baso % (Auto) 0.4 % (0.0-1.8) 03/24/19 05:14 Lymph # 1.8 K/mm3 (1.2-5.4) 03/24/19 05:14 Craven # 0.5 K/mm3 (0.0-0.8) 03/24/19 05:14 Eos # 0.2 K/mm3 (0.0-0.4) 03/24/19 05:14 Baso # 0.0 K/mm3 (0.0-0.1) 03/24/19 05:14 Seg Neutrophils % 59.2 % (40.0-70.0) 03/24/19 05:14 Seg Neutrophils # 3.6 K/mm3 (1.8-7.7) 03/24/19 05:14 Sodium 137 mmol/L (137-145) 03/24/19 05:14 Potassium 3.7 mmol/L (3.6-5.0) 03/24/19 05:14 Chloride 103.1 mmol/L (98-107) 03/24/19 05:14 Carbon Dioxide 23 mmol/L (22-30) 03/24/19 05:14 15 mmol/L 03/24/19 05:14 BUN 5 mg/dL (7-17) L 03/24/19 05:14 0.5 mg/dL (0.7-1.2) L 03/24/19 05:14 Estimated GFR > 60 ml/min 03/24/19 05:14 10 % 03/24/19 05:14 Glucose 78 mg/dL (65-100) 03/24/19 05:14 Calcium 8.5 mg/dL (8.4-10.2) 03/24/19 05:14 2.40 mg/dL (0.1-1.2) H 03/24/19 05:14 AST 37 units/L (5-40) 03/24/19 05:14 ALT 94 units/L (7-56) H 03/24/19 05:14 153 units/L (35-129) H 03/24/19 05:14 7.3 g/dL (6.3-8.2) 03/24/19 05:14 3.9 g/dL (3.9-5) 03/24/19 05:14 1.1 % 03/24/19 05:14 68 units/L (13-60) H 03/24/19 05:14 HCG, Qual Negative (Negative) 03/22/19 16:07 Dariana (Yellow) 03/22/19 16:01 Slightly-cloudy (Clear) 03/22/19 16:01 5.0 (5.0-7.0) 03/22/19 16:01 Ur Specific [place] 1.027 (1.003-1.030) 03/22/19 16:01 30 mg/dl mg/dL (Negative) 03/22/19 16:01 Neg mg/dL (Negative) 03/22/19 16:01 Neg mg/dL (Negative) 03/22/19 16:01 Sm (Negative) 03/22/19 16:01 Pos (Negative) 03/22/19 16:01 Mod (Negative) 03/22/19 16:01 Positive (Negative) 03/22/19 16:01 4.0 mg/dL (<2.0) 03/22/19 16:01 Ur Leukocyte Esterase Neg (Negative) 03/22/19 16:01 3.0 /HPF (0.0-6.0) 03/22/19 16:01 2.0 /HPF (0.0-6.0) 03/22/19 16:01 U Epithel Cells (Auto) 13.0 /HPF (0-13.0) 03/22/19 16:01 4+ /HPF (Negative) 03/22/19 16:01 3+ /HPF 03/22/19 16:01 Active Medications - Current Medications Current Medications: Generic Name Dose Route Start Last Admin Trade Name Freq PRN Reason Stop Dose Admin Acetaminophen 650 mg 03/22/19 22:45 Tylenol PO Q4H PRN Pain MILD(1-3)/Fever >100.5/LYNN Levofloxacin/Dextrose 500 mg in 100 mls @ 100 mls/hr 03/23/19 10:00 03/24/19 09:05 Levaquin 500mg/100ml IV 100 mls/hr Q24HR ZULEYMA Administration Protocol Potassium Chloride 10 meq/ 1,005 mls @ 150 mls/hr 03/23/19 17:00 03/24/19 18:43 Sodium Chloride IV 150 mls/hr DIRECT ZULEYMA Administration Morphine Sulfate 4 mg 03/22/19 22:45 03/23/19 04:58 Morphine IV 4 mg Q4H PRN Administration Pain , Severe (7-10) Ondansetron HCl 4 mg 03/22/19 22:45 Zofran IV Q4H PRN Nausea And Vomiting Sodium Chloride 10 ml 03/23/19 10:00 03/24/19 21:07 Sodium Chloride Flush Syringe 10 Ml IV 10 ml BID ZULEYMA Administration Sodium Chloride 10 ml 03/22/19 22:45 Sodium Chloride Flush Syringe 10 Ml IV PRN PRN LINE FLUSH
--- NOTE | 2019-03-25 10:41 | Progress Note ---
Assessment and Plan HD # 3 Pt feeling well. no pain. no complaints. bird cl liq diet Abd soft, non tender MRCP - no CBD stones or obstruction IMPRESSION: 1. Suspected acute cholecystitis. Please correlate with the clinical findings. 2. No evidence of biliary obstruction or choledocholithiasis. 3. Persistent mild thickening of the proximal duodenum with surrounding edema and a small amount of fluid is likely secondary to the inflammation of the gallbladder. Duodenitis unrelated to the suspected cholecystitis is a less likely consideration. Inflammation from this process can be seen along the pancreatic head without additional evidence of pancreatitis. Please correlate with the clinical findings. imp - improving episode of biliary pancreatitis probably secondary to passed stone. improving cholecystitis clinically stable advance to low fat full liq diet repeat LFT's & lipase in am ideally wait 1-2 wks for biliary and pancreatic inflammation to subside before proceeding with semi-elective lap GB as out pt as long as pt continues to clinically improve Selected Entries 03/25/19 03/25/19 07:46 07:48 Temperature 97.5 F L Pulse Rate 94 H Respiratory 18 Rate Blood Pressure 106/66 [Right] Laboratory Tests 03/24/19 03/24/19 05:14 05:14 WBC 6.2 Hgb 13.4 Hct 40.1 Total Bilirubin 2.40 H Lipase 68 H Objective Vital Signs - 12hr 03/25/19 03/25/19 03/25/19 00:43 04:31 07:46 Temperature 97.9 F 97.6 F 97.5 F L Pulse Rate 74 91 H 94 H Respiratory 20 18 18 Rate Blood Pressure 112/79 113/75 Blood Pressure [Right] O2 Sat by Pulse 98 99 98 Oximetry 03/25/19 07:48 Temperature Pulse Rate Respiratory Rate Blood Pressure Blood Pressure 106/66 [Right] O2 Sat by Pulse Oximetry - Labs 03/24/19 05:14 03/24/19 05:14
[2019-03-25] MEDS: POTASSIUM CHLORIDE 10 MEQ in SODIUM CHLORIDE 0.45% 1000 ML 1,000 ML IV SCH (16:44)
[2019-03-26 07:30] LABS: Basophils % (Auto) 0.3 % (0.0-1.8); Eosinophils # (Auto) 0.2 K/mm3 (0.0-0.4); Eosinophils % (Auto) 2.8 % (0.0-4.3); Hematocrit 40.6 % (30.3-42.9); Hemoglobin 13.4 gm/dl (10.1-14.3); Lymphocytes # (Auto) 2.3 K/mm3 (1.2-5.4); Lymphocytes % (Auto) 28.1 % (13.4-35.0); Mean Corpuscular HGB Conc 33 % (30-34); Mean Corpuscular Volume 82 fl (79-97); Monocytes # (Auto) 0.6 K/mm3 (0.0-0.8); Monocytes % (Auto) 6.8 % (0.0-7.3); Platelet Count 263 K/mm3 (140-440); Red Blood Count 4.98 M/mm3 (3.65-5.03); Red Cell Distribution Width 14.5 % (13.2-15.2)
[2019-03-26 07:34] LABS: Alanine Aminotransferase 104 units/L (7-56); Albumin 4.2 g/dL (3.9-5); BUN/Creatinine Ratio 16; Blood Urea Nitrogen 8 mg/dL (7-17); Hemolysis Index 0
--- NOTE | 2019-03-26 12:02 | Progress Note ---
Assessment and Plan Pt feeling well without compl. bird low fat full liq diet Abd soft, non tender labs much improved. T nathanael down to 1.4. amylase, lipase wnl resolving episode of biliary pancreatitis clinically asymptomatic advance to low fat solid diet may d/c today if diet toll continue po Levaquin 500 mg qd x 5 days rto this Fri Selected Entries 03/26/19 03/26/19 07:17 11:11 Temperature 98.0 F Pulse Rate 85 Blood Pressure 109/68 Laboratory Tests 03/24/19 03/26/19 03/26/19 05:14 04:35 04:35 WBC 8.3 Hgb 13.4 Hct 40.6 Total Bilirubin 2.40 H 1.40 H Amylase 40 Lipase 39 Objective Vital Signs - 12hr 03/26/19 03/26/19 03/26/19 00:15 04:46 07:15 Temperature 98.1 F 97.9 F 98 F Pulse Rate 72 85 Respiratory 16 16 18 Rate Blood Pressure 111/77 109/67 O2 Sat by Pulse 97 98 Oximetry 03/26/19 03/26/19 07:17 11:11 Temperature 98.0 F Pulse Rate 85 104 H Respiratory 18 Rate Blood Pressure 109/67 109/68 O2 Sat by Pulse 96 98 Oximetry - Labs 03/26/19 04:35 03/26/19 04:35 Diabetes panel 03/26/19 Range/Units 04:35 Sodium 138 (137-145) mmol/L Potassium 3.6 (3.6-5.0) mmol/L Chloride 98.5 (98-107) mmol/L Carbon Dioxide 22 (22-30) mmol/L BUN 8 (7-17) mg/dL Creatinine 0.5 L (0.7-1.2) mg/dL Glucose 59 L (65-100) mg/dL Calcium 9.0 (8.4-10.2) mg/dL AST 72 H (5-40) units/L ALT 104 H (7-56) units/L Alkaline Phosphatase 170 H (35-129) units/L Total Protein 7.7 (6.3-8.2) g/dL Albumin 4.2 (3.9-5) g/dL Calcium panel 03/26/19 Range/Units 04:35 Calcium 9.0 (8.4-10.2) mg/dL Albumin 4.2 (3.9-5) g/dL Pituitary panel 03/26/19 Range/Units 04:35 Sodium 138 (137-145) mmol/L Potassium 3.6 (3.6-5.0) mmol/L Chloride 98.5 (98-107) mmol/L Carbon Dioxide 22 (22-30) mmol/L BUN 8 (7-17) mg/dL Creatinine 0.5 L (0.7-1.2) mg/dL Glucose 59 L (65-100) mg/dL Calcium 9.0 (8.4-10.2) mg/dL Adrenal panel 03/26/19 Range/Units 04:35 Sodium 138 (137-145) mmol/L Potassium 3.6 (3.6-5.0) mmol/L Chloride 98.5 (98-107) mmol/L Carbon Dioxide 22 (22-30) mmol/L BUN 8 (7-17) mg/dL Creatinine 0.5 L (0.7-1.2) mg/dL Glucose 59 L (65-100) mg/dL Calcium 9.0 (8.4-10.2) mg/dL Total Bilirubin 1.40 H (0.1-1.2) mg/dL AST 72 H (5-40) units/L ALT 104 H (7-56) units/L Alkaline Phosphatase 170 H (35-129) units/L Total Protein 7.7 (6.3-8.2) g/dL Albumin 4.2 (3.9-5) g/dL
[2019-03-26 15:37] VITALS: BP 104/63
--- NOTE | 2019-03-26 15:59 | Progress Note ---
Assessment and Plan Assessment and plan: Patient is a 28-year-old Urdu speaking woman without chronic medical problems who presents with right upper quadrant pains. Labs show potassium of 3.5, lipase of 495 * CT abdomen and pelvis; possible mild pancreatitis with obvious without obvious complication. Evidence of a recently possible cholelithiasis and possible mild gallbladder wall thickening. Acute cholecystitis Gallstone pancreatitis: ER discussed case with general surgeon Dr. Hendricks, he recommended keeping n.p.o. on obtaining MRCP. Hypokalemia: monitor bmp closely ok to discharge on levaquin x 5 days, return to Dr. Mendoza office on Tuesday per Dr. Mendoza History Interval history: Patient was seen and examined. Follow-up on current diagnosis GS pancreatitis. No overnight events reported to me. Patient denies any chest pain, shortness breath, nausea/vomiting or severe headaches. Imaging, nursing note, chart, labs and old chart reviewed. Discussed with patient. Hospitalist Physical - Physical exam Narrative exam: Gen: WDWN, NAD, Awake, Alert, Orientated HEENT: NCAT, EOMI, PERRL, OP Clear Neck: supple, no adenopathy, no thyromegaly, no JVD CVS/Heart: RRR, normal S1S2, pulses present bilaterally Chest/Lungs: CTA B, Symmetrical chest expansion, good air entry bilaterally GI/Abdomen: soft, RUQ tenderness, good bowel sounds, no guarding or rebound /Bladder: no suprapubic tenderness, no CVA or paraspinal tenderness Extermity/Skin: no c/c/e, no obvious rash MSK: FROM x 4 Neuro: CN 2-12 grossly intact, no new focal deficits Psych: calm - Constitutional Vitals: Temp Pulse Resp BP Pulse Ox 97.4 F L 103 H 18 104/63 96 03/26/19 15:26 03/26/19 15:26 03/26/19 15:26 03/26/19 15:26 03/26/19 15:26 General appearance: Present: no acute distress, well-nourished Results - Labs CBC & Chem 7: 03/26/19 04:35 03/26/19 04:35 Labs: Laboratory Last Values WBC 8.3 K/mm3 (4.5-11.0) 03/26/19 04:35 RBC 4.98 M/mm3 (3.65-5.03) 03/26/19 04:35 Hgb 13.4 gm/dl (10.1-14.3) 03/26/19 04:35 Hct 40.6 % (30.3-42.9) 03/26/19 04:35 MCV 82 fl (79-97) 03/26/19 04:35 MCH 27 pg (28-32) L 03/26/19 04:35 MCHC 33 % (30-34) 03/26/19 04:35 RDW 14.5 % (13.2-15.2) 03/26/19 04:35 Plt Count 263 K/mm3 (140-440) 03/26/19 04:35 Lymph % (Auto) 28.1 % (13.4-35.0) 03/26/19 04:35 [place] % (Auto) 6.8 % (0.0-7.3) 03/26/19 04:35 Eos % (Auto) 2.8 % (0.0-4.3) 03/26/19 04:35 Baso % (Auto) 0.3 % (0.0-1.8) 03/26/19 04:35 Lymph # 2.3 K/mm3 (1.2-5.4) 03/26/19 04:35 [place] # 0.6 K/mm3 (0.0-0.8) 03/26/19 04:35 Eos # 0.2 K/mm3 (0.0-0.4) 03/26/19 04:35 Baso # 0.0 K/mm3 (0.0-0.1) 03/26/19 04:35 Seg Neutrophils % 62.0 % (40.0-70.0) 03/26/19 04:35 Seg Neutrophils # 5.2 K/mm3 (1.8-7.7) 03/26/19 04:35 Sodium 138 mmol/L (137-145) 03/26/19 04:35 Potassium 3.6 mmol/L (3.6-5.0) 03/26/19 04:35 Chloride 98.5 mmol/L (98-107) 03/26/19 04:35 Carbon Dioxide 22 mmol/L (22-30) 03/26/19 04:35 Anion Gap 21 mmol/L 03/26/19 04:35 BUN 8 mg/dL (7-17) 03/26/19 04:35 Creatinine 0.5 mg/dL (0.7-1.2) L 03/26/19 04:35 Estimated GFR > 60 ml/min 03/26/19 04:35 BUN/Creatinine Ratio 16 % 03/26/19 04:35 Glucose 59 mg/dL (65-100) L 03/26/19 04:35 Calcium 9.0 mg/dL (8.4-10.2) 03/26/19 04:35 Total Bilirubin 1.40 mg/dL (0.1-1.2) H 03/26/19 04:35 AST 72 units/L (5-40) H 03/26/19 04:35 ALT 104 units/L (7-56) H 03/26/19 04:35 Alkaline Phosphatase 170 units/L (35-129) H 03/26/19 04:35 Total Protein 7.7 g/dL (6.3-8.2) 03/26/19 04:35 Albumin 4.2 g/dL (3.9-5) 03/26/19 04:35 Albumin/Globulin Ratio 1.2 % 03/26/19 04:35 Amylase 40 units/L (27-131) 03/26/19 04:35 Lipase 39 units/L (13-60) 03/26/19 04:35 HCG, Qual Negative (Negative) 03/22/19 16:07 Urine Color [place] (Yellow) 03/22/19 16:01 Urine Turbidity Slightly-cloudy (Clear) 03/22/19 16:01 Urine pH 5.0 (5.0-7.0) 03/22/19 16:01 Ur Specific [place] 1.027 (1.003-1.030) 03/22/19 16:01 Urine Protein 30 mg/dl mg/dL (Negative) 03/22/19 16:01 Urine Glucose (UA) Neg mg/dL (Negative) 03/22/19 16:01 Urine Ketones Neg mg/dL (Negative) 03/22/19 16:01 Urine Blood Sm (Negative) 03/22/19 16:01 Urine Nitrite Pos (Negative) 03/22/19 16:01 Urine Bilirubin Mod (Negative) 03/22/19 16:01 Urine Ictotest Positive (Negative) 03/22/19 16:01 Urine Urobilinogen 4.0 mg/dL (<2.0) 03/22/19 16:01 Ur Leukocyte Esterase Neg (Negative) 03/22/19 16:01 Urine WBC (Auto) 3.0 /HPF (0.0-6.0) 03/22/19 16:01 Urine RBC (Auto) 2.0 /HPF (0.0-6.0) 03/22/19 16:01 U Epithel Cells (Auto) 13.0 /HPF (0-13.0) 03/22/19 16:01 Urine Bacteria (Auto) 4+ /HPF (Negative) 03/22/19 16:01 Urine Mucus 3+ /HPF 03/22/19 16:01 Active Medications - Current Medications Current Medications: Generic Name Dose Route Start Last Admin Trade Name Freq PRN Reason Stop Dose Admin Acetaminophen 650 mg 03/22/19 22:45 Tylenol PO Q4H PRN Pain MILD(1-3)/Fever >100.5/LYNN Levofloxacin/Dextrose 500 mg in 100 mls @ 100 mls/hr 03/23/19 10:00 03/26/19 12:16 Levaquin 500mg/100ml IV 100 mls/hr Q24HR ZULEYMA Administration Protocol Potassium Chloride 10 meq/ 1,005 mls @ 150 mls/hr 03/23/19 17:00 03/25/19 16:44 Sodium Chloride IV 150 mls/hr DIRECT ZULEYMA Administration Morphine Sulfate 4 mg 03/22/19 22:45 03/23/19 04:58 Morphine IV 4 mg Q4H PRN Administration Pain , Severe (7-10) Ondansetron HCl 4 mg 03/22/19 22:45 Zofran IV Q4H PRN Nausea And Vomiting Sodium Chloride 10 ml 03/23/19 10:00 03/25/19 09:30 Sodium Chloride Flush Syringe 10 Ml IV 10 ml BID ZULEYMA Administration Sodium Chloride 10 ml 03/22/19 22:45 Sodium Chloride Flush Syringe 10 Ml IV PRN PRN LINE FLUSH
--- NOTE | 2019-03-26 16:04 | Discharge Summary ---
Providers - Providers Date of Admission: 03/23/19 08:10 Date of discharge: 03/26/19 Attending physician: ERNESTO MARR 03/22/19 21:28 Consult to Physician [CONS] Stat Comment: Consulting Provider: CONNER MENDOZA Physician Instructions: Reason For Exam: pancreatitis, cholelithiasis Primary care physician: [facility] Hospitalization Condition: Stable Hospital course: Patient is a 28-year-old Bahraini speaking woman without chronic medical problems who presents with right upper quadrant pains. Labs show potassium of 3.5, lipase of 495 * CT abdomen and pelvis; possible mild pancreatitis with obvious without obvious complication. Evidence of a recently possible cholelithiasis and possible mild gallbladder wall thickening. Discharge Diagnoses: Acute cholecystitis Gallstone pancreatitis: ER discussed case with general surgeon Dr. Hendricks, he recommended keeping n.p.o. on obtaining MRCP. Hypokalemia: monitor bmp closely ok to discharge on levaquin x 5 days, return to Dr. Mendoza office on Tuesday per Dr. Mendoza Disposition: DC TO HOME OR SELFCARE Time spent for discharge: 38 minutes Core Measure Documentation - Palliative Care Palliative Care/ Comfort Measures: Not Applicable - Core Measures Any of the following diagnoses?: none - VTE Discharge Requirements Deep Vein Thrombosis/Pulmonary Embolism Present on Admission: No Has pt received <5 days of overlap therapy or INR<2.0: No Anticoagulant overlap therapy prescribed at discharge: No Contraindication No Overlap Therapy order at DC: Not Indicated Exam - Physical Exam Narrative exam: Gen: WDWN, NAD, Awake, Alert, Orientated HEENT: NCAT, EOMI, PERRL, OP Clear Neck: supple, no adenopathy, no thyromegaly, no JVD CVS/Heart: RRR, normal S1S2, pulses present bilaterally Chest/Lungs: CTA B, Symmetrical chest expansion, good air entry bilaterally GI/Abdomen: soft, RUQ tenderness, good bowel sounds, no guarding or rebound /Bladder: no suprapubic tenderness, no CVA or paraspinal tenderness Extermity/Skin: no c/c/e, no obvious rash MSK: FROM x 4 Neuro: CN 2-12 grossly intact, no new focal deficits Psych: calm - Constitutional Vitals: Temp Pulse Resp BP Pulse Ox 97.4 F L 103 H 18 104/63 96 03/26/19 15:26 03/26/19 15:26 03/26/19 15:26 03/26/19 15:26 03/26/19 15:26 Plan Activity: other (no strenous activity unless cleared by Dr. Menodza) Diet: advance as tolerated Follow up with: PRIMARY MD FELY [Primary Care Provider] - 7 Days CONNER MENDOZA MD [Staff Physician] - 03/30/19 Prescriptions: Potassium Chloride [K-Dur] 10 meq PO QDAY #7 tablet levoFLOXacin [Levaquin] 750 mg PO QDAY #5 tablet HYDROcodone/APAP 5-325 [[place] 5/325] 1 each PO Q6HR PRN #8 tablet PRN Reason: Pain , Severe (7-10)
== END 2019-03-26 17:30 | disposition home or self-care (01) | DRG 444 ==
LOC: ED 14:56 → 3B-SURG 22:45 → OBSVTOIN 03-23 08:10
PROVIDERS: ADMIT Internal Medicine; ATTEND Internal Medicine
DX: K80.00 Calculus of gallbladder with acute cholecystitis without obstruction (principal); K85.10 Biliary acute pancreatitis without necrosis or infection; N39.0 Urinary tract infection, site not specified; Z90.49 Acquired absence of other specified parts of digestive tract; E87.6 Hypokalemia
CPT/HCPCS: 36415; 74177; 74181; 76705; 80048; 80053; 81001; 82150; 83690; 84703; 85025; 96361; 96365; 96375; G0378; J1956; J2270; J2405; J2543; J3480; J7030; Q9967